=== PATIENT | male | born 1950 | race Caucasian/White ===

== ENCOUNTER 2016-07-16 09:37 | Emergency (ER) | payer BC ==
[2016-07-16 09:46] VITALS: TEMP 98.2; BMI 37.8
--- NOTE | 2016-07-16 11:29 | EDPRACDOC ---
- General Information Chief Complaint: Male Urogenital Problems Stated Complaint: CATHETER PROBLEM Time Seen by Provider: 07/16/16 11:08 Information Source: Patient, Family Home Medications: Home Medications Lisinopril [Prinivil] 40 mg PO DAILY 07/05/13 Omeprazole [Prilosec] 20 mg PO DAILY 07/08/13 Pravastatin [Pravachol] 40 mg PO HS 07/08/13 Ketoconazole [ Nizoral] 1 geraldo TP DAILY PRN 07/17/15 Hydrochlorothiazide 12.5 mg PO DAILY 07/20/15 Digoxin [Lanoxin, Digitek] 0.25 mg PO DAILY #30 tablet 07/21/15 Diltiazem HCl [Cartia Xt] 300 mg PO DAILY 03/29/16 Fluocinonide/Emollient [Fluocinonide-E 0.05% Cream] 60 gm TP DAILY PRN 03/29/16 Tamsulosin HCl [Flomax] 0.4 mg PO DAILY 03/29/16 Acetaminophen Tablet [TYLENOL Tablet] 975 mg PO Q6H PRN 04/19/16 Apixaban [Eliquis] 5 mg PO BID 07/16/16 Levofloxacin [Levaquin] 500 mg PO DAILY 07/16/16 Nitrofurantoin Monohyd/M-Cryst [Nitrofurantoin Martin-Mcr 100 mg] 100 mg PO .SEE COMMENTS 07/16/16 Allergies/Adverse Reactions: Allergies Allergy/AdvReac Type Severity Reaction Status Date / Time No Known Allergies Allergy Verified 07/16/16 09:47 - History of Present Illness HPI: PT PRESENTS TODAY REQUESTING A REPLACEMENT OF HIS ARNOLD BAG. STATES THAT HIS BAG BROKE LAST NIGHT AND BEGAN TO LEAK. ALSO, STATES THAT WHEN PT TOOK HIS PANTS OFF SHE NOTICED SOME REDNESS TO LEFT LOWER LEG. PT HAS NO COMPLAINTS REGARDING THIS. Onset: NOV Pain Severity: None Oral Intake: Normal Urinary Output: Normal Associated Signs and Symptoms: Reports: None ED Past Medical History - History Reviewed Yes Nurses notes reviewed and agree except as marked - Patient Medical History Cardiac History: Reports: Atrial Fibrillation, Hypertension Respiratory History: Reports: Pulmonary Embolism GI/ History: Reports: Urinary Tract Infection (CHRONIC BLADDER INFECTIONS), Gastroesophageal Reflux (and ESPARZA'S. History of ACHALASIA, now post surgery.) Musculoskeletal History: Reports: Arthritis (OSTEOARTHRITIS) Psychological History: Denies: Depression, Substance Use Disorder Systemic History: Denies: Cancer Additional Past Medical History: DVT Surgical History: Reports: Other (Surgery for ACHALASIA.) - Family Medical History Reports: Hypertension (Mother), Diabetes (Maternal Grandmother), Stroke ( Maternal Grandmother). Denies: Cancer (negative for colon cancer), Cardiac Disorders - Social Medical History Smoking Status: Former smoker Social History: Denies: Substance Use Disorder EDM Review of Systems - Review of Systems ROS Negative Except as Marked: Yes All systems reviewed and were negative except as marked Constitutional: No Symptoms Reported Respiratory: No Symptoms Reported Cardiovascular: No Symptoms Reported Gastrointestinal: No Symptoms Reported Neurological: No Symptoms Reported Musculoskeletal: No Symptoms Reported Integumentary: Rash (?) - Physical Exam Constitutional: Alert (Awake), No apparent distress Oriented to: Time, Person, Place Last recorded Vital Signs: Last Vital Signs Temp 98.2 F 07/16/16 09:44 Pulse 77 07/16/16 09:44 Resp 18 07/16/16 09:44 BP 150/69 07/16/16 09:44 Pulse Ox 94 07/16/16 09:44 Oxygen Pulse Oxygen Saturation 94 O2 Device Room Air Oxygen Flow Rate Fraction of Inspired Oxygen ( FIO2) - HEENT Head: Normal Eye Exam: Normal Neck: Normal, Denies Pain, Midline - Respiratory/Cardiovascular Respiratory: Normal - CTA Cardiovascular: Normal - GI Palpation: Normal Tenderness: Non tender - Bladder: Normal, Other (NOTED ARNOLD CATH INSERTION WITH BROKEN ARNOLD BAG) - Musculoskeletal Back: Normal Extremities: Other ( POINTS TO REDNESS ON PTS LEFT LOWER LEG, BUT I DO NOT SEE ANY REDNESS; PT DENIES ANY PAIN) - Integumentary Skin: Normal Lymphatics: Normal - Neurologic Cerebellar: Normal Mood Description: Normal Thought: Coherent Perception: Normal Decision Time to Discharge: 11:28 - Departure Disposition: Home Condition: Good Final Diagnosis: CHANGE OF ARNOLD BAG Instructions: Arnold Catheter Placement and Care (ED) Education/Counseling Given To: Patient, Family Member Education/Counseling Given Regarding: Diagnosis, Treatment, Follow Up Referrals: None,No Provider [Primary Care Provider] - One Week Prescriptions: No Action Lisinopril [Prinivil] 40 mg PO DAILY Omeprazole [Prilosec] 20 mg PO DAILY Pravastatin [Pravachol] 40 mg PO HS Ketoconazole [ Nizoral] 1 geraldo TP DAILY PRN PRN Reason: Dermatitis Hydrochlorothiazide 12.5 mg PO DAILY Digoxin [Lanoxin, Digitek] 0.25 mg PO DAILY #30 tablet Tamsulosin HCl [Flomax] 0.4 mg PO DAILY Fluocinonide/Emollient [Fluocinonide-E 0.05% Cream] 60 gm TP DAILY PRN PRN Reason: Rash Diltiazem HCl [Cartia Xt] 300 mg PO DAILY Acetaminophen Tablet [TYLENOL Tablet] 975 mg PO Q6H PRN PRN Reason: Pain Nitrofurantoin Monohyd/M-Cryst [Nitrofurantoin Martin-Mcr 100 mg] 100 mg PO .SEE COMMENTS Apixaban [Eliquis] 5 mg PO BID Levofloxacin [Levaquin] 500 mg PO DAILY Additional Instructions: KEEP WATCHFUL EYE ON LOWER LEGS. FOLLOW UP WITH PCP IN 2-3 DAYS IF NEEDED OR FEEL FREE TO RETURN TO ED FOR ANY WORSE/CONCERNING SYMPTOMS.
[2016-07-16 11:54] VITALS: BP 146/74; PULSE 82
== END 2016-07-16 11:47 | disposition home or self-care (01) ==
LOC: EDMC 09:37
DX: Z46.6 Encounter for fitting and adjustment of urinary device (principal)
CPT/HCPCS: 99282